=== PATIENT | female | born 1940 | race Caucasian/White ===

== ENCOUNTER 2016-06-10 16:40 | Inpatient (IN) ==
[2016-06-10] MEDS ORDERED: LOVENOX SUBQ SCH (17:50)
[2016-06-10] MEDS ORDERED: ZOFRAN IV PRN (17:50)
[2016-06-10] MEDS ORDERED: TYLENOL PO PRN (17:50)
[2016-06-10 19:08] LABS: MANUAL DIFF NEEDED? NO
[2016-06-10 19:10] LABS: BASO% 0.5 % (0.0-0.8); EOS# 0.05 X1000 (0.0-0.7); EOS% 0.8 % (0.0-10.0); HEMATOCRIT 37.3 % (37.0-47.0); HEMOGLOBIN 11.8 g/dL (12.0-16.0); IMM GRAN# 0.03 X1000 (0.0-0.04); IMM GRAN% 0.5 % (0.0-0.5); LYMPH# 1.12 X1000 (1.2-3.4); LYMPH% 17.8 % (20.5-51.1); MCH 28.6 PG (27-31); MCHC 31.6 g/dL (33-37); MCV 90.5 FL (81-99); MONO% 7.9 % (1.7-9.3); MPV 10.6 FL (7.4-10.4); NEUT% 72.5 % (42.2-75.2); PLT 202 X1000 (130-400); RBC 4.12 XMIL (4.2-5.4)
[2016-06-10] MEDS: NS 1,000 ML IV SCH (19:23)
[2016-06-10 19:37] LABS: ALBUMIN 3.8 g/dL (3.5-5.0); CALCIUM 9.2 mg/dL (8.8-10.2); POTASSIUM 3.5 mmol/L (3.5-5.1); TOTAL BILIRUBIN 0.26 mg/dL (0.20-1.00); TOTAL PROTEIN 6.3 g/dL (6.3-8.3)
[2016-06-10] MEDS: DESYREL PO PRN (21:37)
[2016-06-10 22:57] LABS: URINE SOURCE CLEAN CATCH
[2016-06-10 23:01] LABS: BILIRUBIN URINE NEGATIVE (NEGATIVE); BLOOD URINE NEGATIVE (NEGATIVE); COLOR YELLOW; GLUCOSE URINE NEGATIVE (NEGATIVE); LEUKOCYTES URINE MODERATE (NEGATIVE); NITRITE URINE NEGATIVE (NEGATIVE); PROTEIN URINE 30 mg/dL (NEGATIVE); SP GRAVITY URINE 1.032; TURBIDITY URINE HAZY (CLEAR); URINE MICRO REVIEW NEEDED? YES; UROBILINOGEN URINE 2 mg/dL (NORMAL)
[2016-06-10 23:15] LABS: UR EPITHELIAL CELLS <10 /HPF (<10); URINE BACTERIA 4+ /HPF; URINE CULTURE NEEDED? YES; URINE WBC <10 /HPF (<10)
[2016-06-10 23:38] LABS: URINE CASTS NONE SEEN; URINE CRYSTALS CA OXALATE PRESENT; URINE SMALL ROUND CELLS NONE SEEN
--- NOTE | 2016-06-11 07:39 | Diag Imaging Result Document ---
PROCEDURE NAME: CHEST-PORTABLE - 06/11/2016 PORTABLE CHEST X-RAY: COMPARISON: 07/21/2012. FINDINGS: Stable calcified granulomas in the left lung and hilum. No focal infiltrates, pneumothorax, or pleural effusion. Heart size is normal. IMPRESSION: No acute disease or change from prior. MTDD
[2016-06-11] MEDS ORDERED: PLAVIX PO SCH (09:00)
[2016-06-11] MEDS ORDERED: PROTONIX IV SCH (09:00)
--- NOTE | 2016-06-11 09:11 | Diag Imaging Result Document ---
PROCEDURE NAME: HIDA SCAN W/ EJECTION FRACTION - 06/11/2016 HIDA SCAN: COMPARISON: None. FINDINGS: 5.7 mCi of Choletec was administered. There is normal uptake and clearance by the liver. There is normal excretion into the gallbladder and small bowel. A fatty meal was given. The gallbladder ejection fraction is 100%. IMPRESSION: Normal exam. An abnormally low ejection fraction (less than 35%) can be present in patients without gallbladder dyskinesis or chronic cholecystitis who have other medical conditions. These include, but are not limited to, patients with diabetes mellitus, irritable bowel syndrome, , gastroenteritis, peptic ulcer disease, and patients who are receiving morphine or nifedipine.
--- NOTE | 2016-06-11 09:20 | PROGRESS NOTE ---
DATE: 06/11/2016 SUBJECTIVE: Ms. Monsivais continues with persistent right upper quadrant and epigastric discomfort in association with nausea and dry heaves. She had a recent ultrasound of the abdomen, which was unremarkable. We performed a HIDA scan with CCK this morning, which demonstrated a normal ejection fraction. She is still having intermittent reflux and sour brash, nausea and early satiety. She has lost 5-10 pounds. She has not had any gross melena or obvious rectal bleeding. Her amylase and lipase were within normal limits. She denies any dysphagia with either liquids or solids. Over the past week, she has fallen 5 or 6 times. If her does not support her, she would fall more frequently. Her gait is quite unstable. She tends to fall forwards and backwards and from [id number]. She has had a resting tremor. We tried her on a trial of Sinemet without significant improvement in her symptoms. She saw Dr. Degroot, who did not feel that she had true Parkinson or parkinsonian-like features and stopped the Sinemet. A CT scan of the brain in the remote past demonstrated diffuse white matter changes and cerebral, as well as cerebellar, atrophy. OBJECTIVE: Vital Signs: Temperature 98.9 degrees, pulse 75, respirations 14, BP 128/52. CV: Regular rate and rhythm. Lungs: Clear. Abdomen: Soft. Good bowel sounds. No hepatosplenomegaly. She has marked epigastric tenderness to deep palpation. No rebound or guarding. Neuro: She is alert and oriented to name and place. She follows simple commands. Cranial nerves 2-12 intact grossly. She was unable to perform [id number] on the left and right. She is unable to perform heel-to-toe ambulation. She was unable to walk on her toes or heels. ASSESSMENT AND PLAN: 1. Right upper quadrant abdominal pain in association with chronic nausea. Her workup of the gallbladder was unremarkable. She is having increasing reflux and sour brash and early satiety. She certainly could have gastritis or an ulcer. We will begin pantoprazole 40 mg intravenous daily. We will consult gastroenterology medicine for consideration of an esophagogastroduodenoscopy today. If the esophagogastroduodenoscopy is unremarkable, we will perform a gastric emptying study. 2. Ataxia. I suspect that she has chronic cerebellar dysfunction. I am going to recheck an MRI of the brain today to ensure that she has not had another stroke which has made it acutely worse. We will consult physical therapy. She is certainly a very high fall risk, and I believe that she would benefit from short-term rehabilitation to help regain strength, as well as to improve her gait. 3. Hypertension. Her blood pressure is well controlled. We will continue Diovan 320 mg daily and Toprol-XL 50 mg daily.
[2016-06-11] MEDS: DIOVAN PO SCH (10:10)
[2016-06-11] MEDS: TOPROL XL PO SCH (10:11)
--- NOTE | 2016-06-11 10:41 | Diag Imaging Result Document ---
PROCEDURE NAME: MRI BRAIN W/O CONTRAST - 06/10/2016 MRI OF THE BRAIN: FINDINGS: There is no evidence of restricted diffusion. There is extensive abnormal T2 weighted signal intensity throughout the white matter of both hemispheres. There are numerous punctate areas of increased T2-weighted signal intensity in the basal ganglia and thalami. This was also the case at the time of the previous study of 04/18/2015. No evidence of bleed or abnormal extra- axial fluid collection is present. 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 No evidence of acute ischemia.
[2016-06-11] MEDS ORDERED: MYLICON DROPS (DOSE) MISC ONE (16:09)
[2016-06-11] MEDS ORDERED: DIPRIVAN 1% ONE (16:35)
[2016-06-11] MEDS ORDERED: ANESTHESIA PB SET 88 IN 5742 ONE (16:38)
[2016-06-11] MEDS ORDERED: XYLOCAINE-MPF 2% ONE (16:38)
[2016-06-11] MEDS ORDERED: LR 1,000 ML ONE (16:39)
[2016-06-11] MEDS ORDERED: FENTANYL ONE (16:39)
[2016-06-11] MEDS ORDERED: SODIUM CHLORIDE 0.9% INJ SCH (16:52)
[2016-06-11] MEDS: CARAFATE LIQUID PO SCH ×2 (18:01→20:20)
[2016-06-11] MEDS: CARAFATE PO SCH ×2 (18:15→21:50)
[2016-06-11] MEDS: PROTONIX IV SCH (18:18)
[2016-06-11] MEDS: NS 1,000 ML IV SCH ×2 (19:30→22:46)
[2016-06-11] MEDS: DESYREL PO PRN (20:24)
--- NOTE | 2016-06-11 20:26 | OPERATIVE NOTE ---
PROCEDURE DATE: 06/11/2016 REFERRING PHYSICIAN: Pete Patel M.D. INDICATIONS FOR PROCEDURE: 1. Nausea. 2. Right upper quadrant pain. 3. Heartburn. 4. Pyrosis. PROCEDURE PERFORMED: 1. Esophagogastroduodenoscopy with dilation. 2. Esophagogastroduodenoscopy with biopsy. CONSENT: Informed consent was obtained from the patient and her prior to the procedure. The risks, benefits, and alternatives were discussed with the patient, her , their son and [id number]. MEDICATION: The patient received monitored anesthesia care. PERFORMING PHYSICIAN: Ginger Christianson M.D. ASSISTANTS: 1. ST. [facility]any 2. Andrea Lewis RN. 3. Paulette Bryan CRNA. 4. Murali Arreola M.D. (anesthesia). COMPLICATIONS: The patient had mild transient hypoxemia that resolved with immediate recovery. It should be noted that she had copious amounts of nasopharyngeal secretions on her vocal cords prior to the procedure. She had a small episode of vocal cord spasm during the procedure that subsequently resolved. ESTIMATED BLOOD LOSS: Less than 1 mL. SPECIMENS REMOVED: Duodenal biopsies. FINDINGS: After sedation was achieved, the upper endoscope was inserted to the 2nd portion of the duodenum. The hypopharynx appeared normal with the exception of the presence of dark yellow- green secretions from the nasopharynx. After washing of the mucosa, the tissue underneath the exudate appeared normal. In the tubular esophagus, there was mild prominent veins and a bluish tinge to the mucosa. In the distal esophagus, there was a Schatzki ring at the GE junction with ulceration. Both were measured at 35 cm from the incisors. Initially, there was resistance of passage of the scope. We applied moderate pressure resulting in dilation of the Schatzki ring and subsequent passage of the scope into the hiatal hernia sac. The hiatal hernia sac was measured from 35-45 cm. In the hiatal hernia sac, there were at least 3 long linear ulcers that ranged in length from 8-10 cm. There was hyperemia throughout the entire hiatal hernia sac. In the gastric lumen, there was erosive gastritis in the antrum, fundus, and body. The mucosa appeared somewhat atrophic. On retroflexed view, the hiatal hernia and inflammation in the cardia and the hernia sac was again visualized. On forward view, there was evidence of pyloric stenosis. Moderate resistance was required to pass the scope into the duodenal bulb. There was a small amount of heme at the pylorus consistent with dilation. In the bulb of the duodenum, there was a pancreatic rest. Upon further advancement of the scope, there were no mucosal lesions per se. However, the mucosa appeared very dusky and was worrisome for mesenteric ischemia. Multiple biopsies were taken. After the exam was complete, the scope was retracted into the gastric lumen. The pylorus was flushed as there was a modest amount of heme. There was spontaneous hemostasis. The scope was then further retracted into the gastric lumen and subsequently into the esophagus with removal. There were no other complications. IMPRESSION: 1. Nasopharyngeal secretions. 2. Prominent esophageal veins. 3. Schatzki ring with ulceration and stricture. 4. Hiatal hernia. 5. Erosive gastritis with linear ulcers in the hiatal hernia sac. 6. Pyloric stenosis. 7. 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 8. A dusky appearing duodenal mucosa. RECOMMENDATION: 1. Begin Protonix 40 mg IV q.12 hours. 2. Begin Carafate 1 g 4 times a day. 3. We await biopsy results. 4. Will plan to perform a CTA of the abdomen and pelvis to assess for mesenteric ischemia. 5. She may require an abdominal ultrasound to assess portal flow if the CTA is unrevealing as to the cause of her prominent esophageal veins. 6. Advance diet as tolerated. I recommend full liquids then a GI soft. Please check a gastric emptying study if nausea with vomiting. I plan an EGD with dilation in 12 weeks. 7. Additional recommendations to follow pending her clinical course. 8. Post discharge, I will have the patient return to clinic in 4 weeks to assess interval progress. cc: MD Tha Monreal MD [facility]
[2016-06-11] MEDS: LEVAQUIN 500 MG/D5W 100 ML IV SCH (21:12)
--- NOTE | 2016-06-11 21:43 | CONSULTATION ---
DATE OF CONSULTATION: 06/11/2016 REFERRING PHYSICIAN: Dr. Pete Patel INDICATION FOR CONSULTATION: 1. Right upper quadrant pain. 2. Epigastric discomfort associated with nausea and dry heaves. 3. 5-10 pound weight loss. 4. Reflux. 5. Pyrosis. 6. Early satiety. HISTORY OF PRESENT ILLNESS: The patient is a 75-year-old white female who is admitted after recurrent falls. She was noted to have the above GI symptoms that have persisted since February 2016. We are asked to participate in her care. PAST MEDICAL HISTORY: 1. Recurrent falls. 2. Mini strokes. 3. Hypertension. 4. GERD. 5. Hyperlipidemia. 6. Diverticulosis. 7. Colon polyps. 8. Constipation. 9. Cataracts. 10. Heart murmur. 11. Depression. 12. Anxiety. PAST SURGICAL HISTORY: 1. Lumpectomy. 2. Skin cancer. SOCIAL HISTORY: She reports social intake of alcohol on the weekends. She denies tobacco use or recreational drug use. She is with children. FAMILY HISTORY: Remarkable in that mother lived to be 83 years of age but of lung cancer. MEDICATION ALLERGIES: None. HOME MEDICATIONS: 1. Losartan/hydrochlorothiazide. 2. Zoloft. 3. Omeprazole. 4. Nifedipine. 5. Lopressor. 6. Lorazepam. 7. Plavix. 8. Lipitor. PHYSICAL EXAM: General: She is in no acute distress. Vital signs: Blood pressure is 137/68, pulse 77 respirations 20, temperature of 98.4 degrees. HEENT: Negative for jaundice. Her conjunctivae are slightly pale. Oropharyngeal mucosal membranes are unremarkable. Pulmonary Exam: Lungs are clear to auscultation, percussion, palpation with normal expiratory effort. Cardiovascular Exam: Reveals regular rate and rhythm with a 2/6 systolic murmur. Abdominal Exam: Reveals normoactive bowel sounds. The abdomen is soft with moderate right upper quadrant tenderness but no rebound or guarding. Extremities: Bilaterally are negative for cyanosis, clubbing or edema. OBJECTIVE DATA: Reveals a hemoglobin of 11.8 with hematocrit of 37.3 and a white count of 6.29. She has 202,000 platelets. Sodium is 144, potassium 3.5, chloride 104, CO2 28, BUN 19, creatinine 1.3 with a glucose of 89. Calcium is 9.2, total bilirubin 0.26, AST 12, ALT 10 , alkaline phosphatase 79, total protein 6.3, and albumin 2.8. Her CK is 94, lipase 42 and amylase 68. IMPRESSION: As above. RECOMMENDATION: 1. Will plan to perform an EGD today. 2. Continue Protonix 40 mg q.24 hours pending endoscopic evaluation. 3. Monitor serial hemoglobin and hematocrit. 4. Additional recommendations to follow based on her clinical results. cc: MD Tha Monreal MD [facility]ENTERPadmini
--- NOTE | 2016-06-11 21:52 | PROGRESS NOTE ---
DATE: 06/11/2016 The patient underwent an EGD today that was remarkable for esophagitis with a Schatzki's ring, esophageal ulcer, gastritis, pyloric stenosis and a dusky appearing duodenum. A CT scan of the abdomen and pelvis was ordered. I spoke with Dr. Melton. There was no evidence of mesenteric ischemia. However, she does have acute diverticulitis and constipation. Therefore, I will begin Levaquin 500 mg IV q.24 hours and Flagyl 250 mg q.6 hours. She will need a 10 day course of antibiotics. Subsequently, she would benefit from having a repeat colonoscopy. She reports that her last colonoscopy was in August 2012. She has not been routinely followed by a medical social worker since her colonoscopy at that time. We will discuss this further with the patient and her family prior to discharge. cc: MD Tha Monreal MD MTDD
[2016-06-11] MEDS: FLAGYL IV SCH (22:28)
[2016-06-11] MEDS: NS IV SCH (22:28)
--- NOTE | 2016-06-11 22:50 | Diag Imaging Result Document ---
PROCEDURE NAME: CT PELVIS WITH IV CONTRAST ONL - 06/11/2016 CT OF THE PELVIS WITH INTRAVENOUS CONTRAST: FINDINGS: CT of the pelvis with intravenous contrast and 3D MIP images of the abdominal aorta. There is some apparent fibrosis in the left lower lobe. There are granulomata present in the spleen. There is some atherosclerotic calcification in the aorta and its branches; however, the proximal superior mesenteric artery is widely patent as is the celiac artery. The inferior mesenteric artery is patent. There is minimal dilatation of the distal abdominal aorta to a maximum AP dimension of less than 17 mm. There is calcification at the ostium of the right renal artery but no evidence of stenosis is present. There is stool throughout the colon. There is no evidence of mucosal thickening in the colon. There is some fluid in the small bowel without dilatation. There is a gas containing diverticulum arising from the third portion of the duodenum. Those portions of the small bowel containing contrast and air demonstrate no evidence of mucosal thickening. There is diverticulosis of the descending colon. The possibility of a very mild degree of diverticulitis in the distal portion of the descending colon and proximal sigmoid cannot be entirely excluded. There are no previous studies available for comparison. There is a fairly large amount of solid stool in the rectosigmoid. No free fluid is present. There is no evidence of extraluminal or free air in the abdomen or pelvis. The appendix is normal in appearance. IMPRESSION: Atherosclerotic changes without evidence of significant stenosis. Constipation. Questionable diverticulitis.
[2016-06-12] MEDS: FLAGYL IV SCH ×3 (04:22→16:00)
[2016-06-12] MEDS: NS IV SCH ×3 (04:22→16:00)
[2016-06-12] MEDS: PROTONIX IV SCH ×2 (06:40→18:00)
[2016-06-12] MEDS: CARAFATE LIQUID PO SCH ×4 (06:40→21:14)
[2016-06-12] MEDS: EXCEDRIN MIGRAINE PO PRN ×2 (08:00→22:14)
[2016-06-12] MEDS: SODIUM CHLORIDE 0.9% INJ SCH (09:00)
[2016-06-12] MEDS: DIOVAN PO SCH (09:00)
[2016-06-12] MEDS: TOPROL XL PO SCH (09:00)
[2016-06-12] MEDS: NS 1,000 ML IV SCH (09:50)
[2016-06-12 17:11] LABS: MANUAL DIFF NEEDED? NO
[2016-06-12 17:16] LABS: BASO% 0.6 % (0.0-0.8); EOS# 0.05 X1000 (0.0-0.7); EOS% 0.9 % (0.0-10.0); HEMATOCRIT 33.8 % (37.0-47.0); HEMOGLOBIN 10.7 g/dL (12.0-16.0); IMM GRAN# 0.02 X1000 (0.0-0.04); IMM GRAN% 0.4 % (0.0-0.5); LYMPH# 0.93 X1000 (1.2-3.4); LYMPH% 17.5 % (20.5-51.1); MCH 28.6 PG (27-31); MCHC 31.7 g/dL (33-37); MCV 90.4 FL (81-99); MONO# 0.56 X1000 (0.11-0.59); MONO% 10.6 % (1.7-9.3); PLT 179 X1000 (130-400); RBC 3.74 XMIL (4.2-5.4)
[2016-06-12 17:21] LABS: AGAP 12; ALBUMIN 3.3 g/dL (3.5-5.0); ALKALINE PHOSPHATASE 71 U/L (32-104); BUN 9 mg/dL (8-22); CALCIUM 8.3 mg/dL (8.8-10.2); CHLORIDE 107 mmol/L (98-107); COSMO 282; GOT 10 U/L (10-30); GPT 8 U/L (10-36); POTASSIUM 3.4 mmol/L (3.5-5.1); SODIUM 142 mmol/L (136-145); TCO2 23 mmol/L (25-35); TOTAL BILIRUBIN 0.36 mg/dL (0.20-1.00); TOTAL PROTEIN 5.4 g/dL (6.3-8.3)
[2016-06-12] MEDS: LEVAQUIN 500 MG/D5W 100 ML IV SCH (21:14)
[2016-06-12] MEDS: DESYREL PO PRN (21:14)
[2016-06-13] MEDS: FLAGYL IV SCH ×4 (04:27→22:53)
[2016-06-13] MEDS: NS IV SCH ×4 (04:27→22:53)
[2016-06-13 06:30] LABS: MANUAL DIFF NEEDED? NO
[2016-06-13 06:35] LABS: BASO% 0.3 % (0.0-0.8); EOS% 1.7 % (0.0-10.0); HEMATOCRIT 35.6 % (37.0-47.0); HEMOGLOBIN 11.4 g/dL (12.0-16.0); IMM GRAN# 0.03 X1000 (0.0-0.04); IMM GRAN% 0.5 % (0.0-0.5); LYMPH# 1.36 X1000 (1.2-3.4); LYMPH% 22.7 % (20.5-51.1); MCH 28.5 PG (27-31); MONO# 0.52 X1000 (0.11-0.59); MONO% 8.7 % (1.7-9.3); MPV 10.7 FL (7.4-10.4); NEUT% 66.1 % (42.2-75.2); PLT 195 X1000 (130-400)
[2016-06-13 06:51] LABS: AGAP 11; BUN 5 mg/dL (8-22); CALCIUM 8.4 mg/dL (8.8-10.2); CHLORIDE 108 mmol/L (98-107); COSMO 280; POTASSIUM 3.2 mmol/L (3.5-5.1); SODIUM 142 mmol/L (136-145); TCO2 23 mmol/L (25-35)
[2016-06-13] MEDS: PROTONIX IV SCH ×2 (08:08→22:54)
[2016-06-13] MEDS: NS 1,000 ML IV SCH ×3 (08:08→16:16)
[2016-06-13] MEDS: CARAFATE LIQUID PO SCH ×4 (08:08→22:54)
[2016-06-13] MEDS: DIOVAN PO SCH (10:27)
[2016-06-13] MEDS: TOPROL XL PO SCH (10:28)
[2016-06-13] MEDS ORDERED: KLOR-CON PO ONE (10:36)
--- NOTE | 2016-06-13 12:25 | PROGRESS NOTE ---
DATE: 06/13/2016 SUBJECTIVE: Ms. Monsivais is awake and easily arousable. She answers questions appropriately. She has been tolerating a clear liquid diet without nausea, vomiting, or abdominal pain. An EGD demonstrated a Schatzki's ring with ulceration as well as pyloric stenosis. Dr. Christianson performed dilatation of both the Schatzki's ring in the pyloric stenosis. She denies any dysuria, increased urinary frequency, or low back pain. A urine culture grew out E. coli. OBJECTIVE: Vital Signs: Temperature 98.3 degrees, pulse 62, respirations 12, BP 153/69. CV: Regular rate and rhythm. Lungs: Clear. Abdomen: Soft, nontender with active bowel sounds. No hepatosplenomegaly. No abdominal bruits. ASSESSMENT AND PLAN: 1. Abdominal pain. I believe that her abdominal pain was related to the esophageal ulcer, and her nausea and vomiting was related to the pyloric stenosis. She is tolerating a clear liquid diet. I will advance her to a full liquid diet. We will continue intravenous pantoprazole and Carafate. 2. Urinary tract infection. We will continue intravenous Levaquin. 3. Cerebellar ataxia. She is making slow steady progress with physical therapy. She certainly is at an extremely high risk for falls. We have consulted aids social worker for short-term rehabilitation placement. 4. Hypokalemia. Her potassium this morning was 3.2. I will give her KCl 40 mEq by mouth x1 dose. cc: Tha Patel MD
[2016-06-13] MEDS: LEVAQUIN 500 MG/D5W 100 ML IV SCH (22:54)
[2016-06-14] MEDS: NS 1,000 ML IV SCH ×2 (02:14→16:16)
[2016-06-14] MEDS: FLAGYL IV SCH ×3 (06:50→18:08)
[2016-06-14] MEDS: NS IV SCH ×3 (06:50→18:08)
[2016-06-14] MEDS: CARAFATE LIQUID PO SCH ×4 (06:51→21:33)
[2016-06-14 07:07] LABS: CALCIUM 8.4 mg/dL (8.8-10.2); POTASSIUM 3.9 mmol/L (3.5-5.1)
--- NOTE | 2016-06-14 07:58 | PROGRESS NOTE ---
DATE: 06/14/2016 SUBJECTIVE: The patient has a longstanding history of hypertension. Her blood pressure is well controlled. Systolic blood pressures range from 136-143 whereas her diastolic blood pressures range from 66-81. She denies any chest pain, palpitations, or anginal equivalents. She is tolerating a clear liquid diet without nausea, vomiting, or abdominal pain. An EGD demonstrated a Schatzki's ring with ulceration as well as pyloric stenosis. She is making slow but steady progress with physical therapy. She denies any dysuria or increased urinary frequency. A urine culture grew out E. coli. OBJECTIVE: Vital signs: Temperature 98.3 degrees pulse 56, BP 136/69. Cardiovascular: Regular rate and rhythm. Lungs: Clear. Abdomen: Soft and nontender with active bowel sounds. LABORATORY STUDIES: Various laboratory studies were obtained. A BMP demonstrates the following, sodium 143, potassium 3.9, chloride 110, BUN 5, creatinine 1.0, and glucose is 96. ASSESSMENT AND PLAN: 1. Hypertension. Her blood pressure is well controlled. We will continue Toprol-XL 50 mg daily. 2. Schatzki's ring with ulceration and pyloric stenosis status post dilatation of both the Schatzki's ring and pyloric stenosis. We will advance her to a GI soft diet and continue IV pantoprazole and Carafate. She will need a repeat EGD in 3 months. 3. UTI. We will continue Levaquin 500 mg IV daily. 4. Cerebellar ataxia. We will continue physical therapy and we are working on a short-term rehab. cc: Tha Patel MD
[2016-06-14] MEDS: SODIUM CHLORIDE 0.9% INJ SCH ×2 (09:24→21:33)
[2016-06-14] MEDS: TOPROL XL PO SCH (09:24)
[2016-06-14] MEDS: PROTONIX IV SCH ×2 (09:24→21:33)
[2016-06-14] MEDS: DIOVAN PO SCH (09:25)
[2016-06-14] MEDS: EXCEDRIN MIGRAINE PO PRN (09:58)
[2016-06-14] MEDS: LEVAQUIN 500 MG/D5W 100 ML IV SCH (21:33)
[2016-06-14] MEDS: DESYREL PO PRN (21:40)
--- NOTE | 2016-06-14 23:02 | DISCHARGE SUMMARY ---
ADMISSION DATE: 06/10/2016 DISCHARGE DATE: 06/15/2016 DISCHARGE DIAGNOSES: 1. Essential hypertension. 2. Gastroesophageal reflux disease. 3. Schatzki's ring with ulcerations, status post dilatation. 4. Pyloric stenosis, status post dilatation. 5. Urinary tract infection. 6. Major depression. 7. Cerebellar ataxia. DISCHARGE INSTRUCTIONS: 1. The patient will be transferred to [facility] in order to undergo short -term rehab. 2. Activity as tolerated. 3. GI soft diet. MEDICATIONS: Trazodone 50 mg 1 at bedtime p.r.n. insomnia, metoprolol 50 mg daily, pantoprazole 40 mg daily, Carafate 1 g p.o. q.6 hours, Zoloft 50 mg daily, bupropion SR 200 mg b.i.d., lorazepam 0.5 mg 1 q.8 hours p.r.n. anxiety, Diovan HCT 320/12.5 one p.o. daily , atorvastatin 40 mg at bedtime, Plavix 75 mg daily. DISCHARGE PHYSICAL EXAMINATION: General: This is a well-developed, well- nourished, 75-year-old, lady in no apparent distress. vital signs: She is afebrile. Pulse 64, respirations 18, BP 149/75. Cardiovascular: Regular rate and rhythm. Lungs: Clear. Abdomen: Soft, nontender, with active bowel sounds. No hepatosplenomegaly. No abdominal bruits. Neurologic: She is awake and easily arousable. She is oriented to name, place, and time. Extremities: She has normal tone and strength in the upper and lower extremities bilaterally. She was unable to perform hatdec-ef-zimy bilaterally. She was unable to walk on her heels/toes or perform heel-to- toe ambulation. HOSPITAL COURSE: Mrs. Jackelin Monsivais has a history of cerebellar ataxia. She has fallen multiple times in the past week. A repeat MRI of the brain demonstrated diffuse and severe chronic white matter changes and cerebral atrophy. No acute stroke was noted. Physical therapy was consulted to see the patient. She certainly is at a high fall risk, and we felt that she would benefit from short-term rehab. Arrangements were made to send her to [facility] in order to undergo short-term rehab. At the time of admission, she was having persistent nausea, vomiting, and right upper quadrant abdominal pain. A recent ultrasound of the gallbladder was within normal limits. We ordered a HIDA scan with CCK, which demonstrated an EF of 100%. We consulted Dr. Christianson, who performed an EGD. The EGD demonstrated Schatzki's ring with superficial ulceration and pyloric stenosis. She underwent dilatation of the Schatzki's ring and pyloric stenosis. We placed her on pantoprazole 40 mg IV q.12 hours initially. We switched her to oral pantoprazole and added Carafate 1 g q.6 hours. We started her on a clear liquid diet and her diet was advanced to a GI soft diet, which she was tolerating without nausea, vomiting, or abdominal pain. She does have a longstanding history of hypertension. Her blood pressure is well controlled. She was maintained on her regular home medications. A rehab bed did not open up and we cancelled the discharge. She became highly agitated last pm when another patient was placed in the room and she left AMA. cc: hTa Patel MD MTDPadmini
[2016-06-15 00:03] VITALS: BP 160/71
[2016-06-15] MEDS: FLAGYL IV SCH (01:00)
[2016-06-15] MEDS: NS IV SCH (01:00)
[2016-06-15] MEDS ORDERED: PROTONIX PO SCH (07:00)
== END 2016-06-15 02:10 | disposition left against medical advice (07) ==
LOC: DIRADM 16:40 → 4N 17:17 → DIRADM 06-11 10:00 → 4N 06-11 10:04
PROVIDERS: ADMIT Internal Medicine; ATTEND Internal Medicine